=== PATIENT | male | born 2000 | race Two or more races ===

== ENCOUNTER 2018-11-12 13:05 | Emergency (ER) | payer MEDICAID, OTHER ==
[~2018-11-12] VITALS: Ht 182.9 cm; Wt 63.5 kg
[2018-11-12 13:18] VITALS: BP 108/65
[2018-11-12] MEDS ORDERED: ALBUTEROL SULF 2.5 MG/0.5ML(0.5%) NEB SOLN NEB ONE (15:00)
[2018-11-12] MEDS ORDERED: IPRATROPIUM BROM 0.5 MG/2.5ML INH SOL NEB ONE (15:00)
== END 2018-11-12 15:35 | disposition home or self-care (01) ==
LOC: ER 13:05
DX: R06.4 Hyperventilation (principal); J45.909 Unspecified asthma, uncomplicated; Z90.89 Acquired absence of other organs
CPT/HCPCS: 94640; 99283; J7611; J7644